=== PATIENT | female | born 1955 | race Caucasian/White ===

== ENCOUNTER → 2018-01-29 | Outpatient (CLI) | payer BC ==
[~2018-01-29] MED LIST: CELEXA10 MG; KLONOPIN0.5 MG PO; WELLBUTRIN XL300 MG PO
== END ==
LOC: MC.RAD 14:40
DX: Z12.31 Encounter for screening mammogram for malignant neoplasm of breast (principal)

== ENCOUNTER 2018-06-10 21:09 | Emergency (ER) | payer BC ==
[~2018-06-10] VITALS: Ht 154.9 cm; Wt 53.2 kg
[2018-06-10 21:15] VITALS: BP 144/75; TEMP 97.5
[2018-06-10] MEDS ORDERED: LEXAPRO 10MG10 MG PO (22:06)
[2018-06-10 22:27] VITALS: PULSE 63
== END 2018-06-10 22:27 | disposition home or self-care (01) ==
LOC: COL.ER 21:09
DX: S61.411A Laceration without foreign body of right hand, initial encounter (principal); W25.XXXA Contact with sharp glass, initial encounter; Y92.009 Unspecified place in unspecified non-institutional (private) residence as the place of occurrence of the external cause

== ENCOUNTER 2018-06-20 13:05 | Emergency (ER) | payer BC ==
[~2018-06-20 13:05] MED LIST changes: +LEXAPRO 10MG10 MG PO
== END 2018-06-20 13:20 | disposition home or self-care (01) ==
LOC: COL.ER 13:05
DX: S61.412D Laceration without foreign body of left hand, subsequent encounter (principal)

== ENCOUNTER → 2021-06-11 | Outpatient (CLI) | payer MEDICARE | LOC: MC.RAD 14:04 | DX: Z12.31 Encounter for screening mammogram for malignant neoplasm of breast (principal) ==

== ENCOUNTER 2021-12-18 14:41 | Observation (INO) | payer MEDICARE ==
[~2021-12-18] VITALS: Ht 155 cm; Wt 56.5 kg
[2021-12-18] MEDS ORDERED: EFFEXOR-XR150 MG PO (15:12)
[2021-12-18] MEDS ORDERED: COREG 25MG25 MG/TAB PO (15:12)
[2021-12-18] MEDS ORDERED: XALATAN EYE DROPS OU (15:13)
[2021-12-18 15:21] LABS: BASO # 0.1 K/mm3 (0.0-0.2); EOS # 0.1 K/mm3 (0.0-0.7); EOS % 1.7 % (0.0-4.0); HEMATOCRIT 42.9 % (37.0-47.0); HEMOGLOBIN 14.3 g/dl (12.5-16.0); LYMPH # 2.5 K/mm3 (1.2-3.4); LYMPH % 33.8 % (20.0-51.0); MEAN CELL VOLUME 90 fl (80.0-100.0); MEAN CORPUSCULAR HEMOGLOBIN 30 pg (27-31); MEAN CORPUSCULAR HGB CONC 33 g/dl (33.0-37.0); MEAN PLATELET VOLUME 12.1 fl (7.4-10.4); MONO # 0.6 K/mm3 (0.1-0.6); MONO % 8.4 % (1.7-9.3); PLATELET COUNT 233 K/mm3 (130-400); RED BLOOD COUNT 4.78 M/mm3 (4.10-5.30); REDCELL DISTRIBUTION WIDTH-CV 13.3 % (11.5-14.5)
[2021-12-18 15:39] LABS: ALANINE AMINOTRANSFERASE 13 U/L (0-55); ALBUMIN 4.2 gm/dL (3.4-4.8); ALKALINE PHOSPHATASE 73 U/L (40-150); ANION GAP 12 mmol/L (7-16); AST,SGOT 19 U/L (5-34); BILIRUBIN,TOTAL 1.5 mg/dL (0.2-1.2); BLOOD UREA NITROGEN 10 mg/dL (10-20); CALCIUM 9.4 mg/dL (8.4-10.2); CARBON DIOXIDE 22 mmol/L (23-31); CHLORIDE 108 mmol/L (98-107); CREATININE, serum 0.89 mg/dL (0.57-1.11); GLUCOSE 84 mg/dL (70-99); POTASSIUM 3.8 mmol/L (3.5-4.5); SODIUM 142 mmol/L (136-145); TOTAL PROTEIN 6.9 gm/dL (6.2-8.1)
[2021-12-18 15:47] LABS: TROPONIN-I < 0.010 ng/mL (0.00-0.033)
[2021-12-18 17:34] VITALS: BP 166/84; PULSE 53; TEMP 98.2
--- NOTE | 2021-12-18 18:06 | NUR ---
Received report from ED. Patient to floor. Intake and assessment performed. Patient complains of pain in neck 12/28. Call light within reach.
--- NOTE | 2021-12-18 19:30 | NUR ---
Pt. sitting up in bed. Pt. is A&OX3, assessment complete. INT to rt. forearm patent. Pt. denies pain or other needs at this time. Call light within reach.
[2021-12-18 19:45] VITALS: BP 144/86; PULSE 59; TEMP 98.2
--- NOTE | 2021-12-18 20:11 | NUR ---
Pt. reports chest pain that is sharp. Notified CARLOS Leung. New orders received.
[2021-12-19] VITALS (7 sets, daily range): BP systolic 145–178; BP diastolic 83–94; PULSE 53–65; TEMP 97.5–98.2
[2021-12-19 06:42] LABS: BASO # 0.1 K/mm3 (0.0-0.2); BASO % 0.8 % (0.0-2.0); EOS # 0.2 K/mm3 (0.0-0.7); EOS % 1.9 % (0.0-4.0); GRAN % 50.3 % (42.2-75.2); HEMATOCRIT 44.2 % (37.0-47.0); HEMOGLOBIN 14.5 g/dl (12.5-16.0); LYMPH # 2.9 K/mm3 (1.2-3.4); LYMPH % 36.8 % (20.0-51.0); MEAN CELL VOLUME 90 fl (80.0-100.0); MEAN CORPUSCULAR HEMOGLOBIN 30 pg (27-31); MEAN CORPUSCULAR HGB CONC 33 g/dl (33.0-37.0); MEAN PLATELET VOLUME 12.8 fl (7.4-10.4); MONO # 0.8 K/mm3 (0.1-0.6); MONO % 9.9 % (1.7-9.3); PLATELET COUNT 227 K/mm3 (130-400); REDCELL DISTRIBUTION WIDTH-CV 13.5 % (11.5-14.5)
[2021-12-19 07:09] LABS: CALCIUM 9.4 mg/dL (8.4-10.2); CHOLESTEROL RISK RATIO 5.2; CREATININE, serum 0.94 mg/dL (0.57-1.11); POTASSIUM 4.1 mmol/L (3.5-4.5)
--- NOTE | 2021-12-19 10:27 | NUR ---
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 Patient resting in bed alert and oriented x4. Complains of neck pain rating 8/10. Assessment performed. AM meds administered along with PRN pain medication and hydralyzine. Call light within reach.
--- NOTE | 2021-12-19 11:31 | NUR ---
SW completed intake with patient. Patient states she lives in [facility] with her spouse Virgil Jay Jr. [phone] whom she appointed as DPOA/HC during intake. Documentation was reviewed, completed and signed by patient and witness. Documenation copied for patient and original placed in chart. Patient states that she does not utilize DME and is independent with ADL's. PCP is Dr. Bailey and [facility] is [facility]. Patient states that her plan is to return to her home upon DC in which she has not questions or concerns with doing so. SW will continue to follow. DC plan: home
--- NOTE | 2021-12-19 16:31 | NUR ---
Patient called and reported one episode of emesis preceding a slight headache. Patient was given zofran and hydralyzine for bp of 177/92. Patient to call if headache does not subside. Will continue to monitor.
--- NOTE | 2021-12-19 20:50 | NUR ---
Pt. sitting up in bed. Pt. is A&OX3, assessment complete. IN to rt. forearm patent. Pt. reports feeling nauseated, giving zofran. Pt. also reports pain to her chest at a 6 on pain scale but then is able to carry on a conversation with this nurse. Pt. given pain medication per orders. Pt. denies further needs, call light within reach.
[2021-12-20] VITALS (10 sets, daily range): BP systolic 125–169; BP diastolic 78–105; PULSE 62–118; TEMP 98.1–98.7
--- NOTE | 2021-12-20 09:34 | NUR ---
Initial visit; Patient thanked Home Theater Experience Expert for looking in on her and wishing her well. Home Theater Experience Expert will follow up. Patient's was also present.
[2021-12-20] MEDS ORDERED: LIPITOR20 MG PO (15:25)
[2021-12-20] MEDS ORDERED: TYLENOL 500MG500 MG PO (15:26)
[2021-12-20] MEDS ORDERED: MOTRIN 400400 MG/TAB PO (15:26)
== END 2021-12-20 15:55 | disposition home or self-care (01) ==
LOC: COL.ER 14:41 → SURG 16:31 → COL.ER 16:31 → SURG 16:31
PROVIDERS: Emergency Medicine; ADMIT Family Medicine
DX: R07.9 Chest pain, unspecified (principal); M54.81 Occipital neuralgia; E78.5 Hyperlipidemia, unspecified; I10 Essential (primary) hypertension; F41.9 Anxiety disorder, unspecified; F12.90 Cannabis use, unspecified, uncomplicated; Z79.899 Other long term (current) drug therapy
CPT/HCPCS: A9500; G0378; J0360; J1650; J2270; J2405; J2785; Q9967

== ENCOUNTER → 2024-01-11 | Outpatient (CLI) | payer MEDICARE, OTHER ==
[~2024-01-11] MED LIST changes: +COREG 25MG25 MG/TAB PO; +EFFEXOR-XR150 MG PO; +LIPITOR20 MG PO; +MOTRIN 400400 MG/TAB PO; +TYLENOL 500MG500 MG PO; +XALATAN EYE DROPS OU
== END ==
LOC: MC.RAD 09:44
DX: Z12.31 Encounter for screening mammogram for malignant neoplasm of breast (principal)